=== PATIENT | male | born 1965 | race Hispanic/Latino ===

== ENCOUNTER 2019-10-12 18:03 | Emergency (ER) | payer OTHER ==
[2019-10-12] MEDS ORDERED: TETRACAINE HCL 0.5% 4 ML OPHTH SOLN ONE (18:29)
[2019-10-12] MEDS ORDERED: FLUORESCEIN SODIUM 1 STRIP STRIP ONE (18:29)
[2019-10-12] MEDS ORDERED: TETANUS/DIPHTHERIA TOXOID [ADULT] 0.5 ML VIAL IM ONE (18:32)
== END 2019-10-12 18:50 | disposition home or self-care (01) ==
LOC: EDH 18:03
DX: S05.02XA Injury of conjunctiva and corneal abrasion without foreign body, left eye, initial encounter (principal); X58.XXXA Exposure to other specified factors, initial encounter; Y93.89 Activity, other specified; Y92.89 Other specified places as the place of occurrence of the external cause; Y99.8 Other external cause status
CPT/HCPCS: 90471; 90714